=== PATIENT | female | born 1940 | race Caucasian/White ===

== ENCOUNTER 2017-11-08 10:28 | Emergency (ER) | payer OTHER ==
[~2017-11-08] VITALS: Ht 147.3 cm; Wt 56.0 kg
[2017-11-08 10:33] VITALS: BP 218/94; PULSE 93; RESP 16; TEMP 97.9; O2SAT 95
--- NOTE | 2017-11-08 11:18 | PD ---
HPI Chief Complaint: Injury Time Seen by Provider: 10:52 Travel History International Travel<30 days: No Contact w/Intl Traveler<30days: No Traveled to known affect area: No History of Present Illness HPI 77-year-old female here with right knee pain 2 weeks. Patient reports approximately 2 weeks ago she tripped while going up the stairs falling onto the right flexed knee. There was no head injury or loss of consciousness. Patient is on Xarelto. She denies any headache, visual changes, dizziness since the event. She has pain localized to the right knee exclusively. Pain is worse with weightbearing and range of motion. No paresthesia or weakness of the extremity. Symptom severity is moderate. Slightly alleviated with Tylenol. PFSH Past Medical History Hx Anticoagulant Therapy: Yes (XARELTO) Cardiovascular Problems: Yes (HTN, CHOL) High Cholesterol: Yes Cerebrovascular Accident: Yes (CVA) Diabetes: Yes Patient Takes Glucophage: Yes Diminished Hearing: No Hypertension: Yes Tetanus Vaccination: < 5 Years ?: Not Past Surgical History Appendectomy: Yes Cholecystectomy: Yes Tonsillectomy: Yes Other Surgery: Yes (BILAT. ANKLE FX'S REPAIR) Social History Alcohol Use: Yes (RARE) Tobacco Use: No Allergies-Medications (Allergen,Severity, Reaction): Coded Allergies: No Known Allergies (Unverified , 11/08/17) Reported Meds & Prescriptions Reported Meds & Active Scripts Active Ultram (Tramadol HCl) 50 Mg Tab 50 Mg PO Q6H PRN Review of Systems Except as stated in HPI: all other systems reviewed are Neg General / Constitutional: No: Fever Eyes: No: Visual changes HENT: No: Headaches Cardiovascular: No: Chest Pain or Discomfort Physical Exam Narrative GENERAL: Alert and well-appearing 77-year-old female SKIN: Warm and dry. HEAD: Normocephalic. Atraumatic EYES: Pupils equal, round, reactive to light. EOMs intact. No injection or drainage. NECK: Supple, trachea midline. No cervical midline tenderness. CARDIOVASCULAR: Regular rate and rhythm without murmurs, gallops, or rubs. RESPIRATORY: Breath sounds equal bilaterally. No accessory muscle use. GASTROINTESTINAL: Abdomen soft, non-tender, nondistended. MUSCULOSKELETAL: No cyanosis, or edema. RLE: Tenderness and mild swelling to the anterior aspect of the right knee. No warmth or erythema of the joint. No obvious deformity. Joint is stable. Reproducible pain with flexion. Palpable distal pulses. Normal sensation. Brisk cap refill. BACK: Nontender without obvious deformity. No CVA tenderness. Data Data Last Documented VS Vital Signs Date Time Temp Pulse Resp B/P (MAP) Pulse Ox O2 Delivery O2 Flow Rate FiO2 11/08/17 10:33 97.9 93 16 218/94 (135) 95 Orders Orders Knee, Complete (4vws) (11/08/17 ) Chad Bandage (11/08/17 11:38) MDM Medical Decision Making Medical Screen Exam Complete: Yes Emergency Medical Condition: Yes Differential Diagnosis Knee contusion, fracture, sprain Narrative Course 77-year-old female here with right knee pain after fall 2 weeks ago. The extremity is neurovascularly intact. X-rays negative for fracture. Her blood pressure was elevated initially, on recheck it was 150/90. Diagnosis Primary Impression: Knee contusion Qualified Codes: S80.01XA - Contusion of right knee, initial encounter Referrals: Primary Care Physician Additional Instructions: Medication as directed. Chad wrap for support. Follow-up with her primary doctor. Scripts Tramadol (Ultram) 50 Mg Tab 50 MG PO Q6H Y for PAIN, #12 TAB 0 Refills Prov: Giovana Montana 11/08/17 Disposition: 01 DISCHARGE HOME Condition: Stable Giovana Montana November 08, 2017 11:18
--- NOTE | 2017-11-08 11:35 | RADRPT ---
EXAM DATE/TIME: 11/08/2017 11:16 [facility] COMPARISON: No previous studies available for comparison. INDICATIONS : Fell down stairs, 3 weeks ago, right knee pain. MEDICAL HISTORY : None. SURGICAL HISTORY : None. ENCOUNTER: Initial ACUITY: 3 weeks PAIN SCORE: 3/10 LOCATION: Right knee FINDINGS: Four view examination of the right knee demonstrates no evidence of fracture or dislocation. Bony mi neralization is normal. The articular surfaces are intact. The suprapatellar soft tissues have a no rmal configuration. CONCLUSION: 1. No acute bony fracture identified. 2. No significant joint effusions. Marlo Patel MD on November 08, 2017 at 11:32 Board Certified Radiologist. This report was verified electronically.
[2017-11-08] MEDS ORDERED: TRAM50 PO (11:38)
[2017-11-08 11:40] VITALS: BP 154/90; PULSE 77; RESP 18; O2SAT 97
[2017-11-08] MEDS ORDERED: VITA2000 PO (11:44)
[2017-11-08] MEDS ORDERED: XARE15TA PO (11:44)
[2017-11-08] MEDS ORDERED: TRAD5TAB PO (11:44)
[2017-11-08] MEDS ORDERED: SERT-132 PO (11:44)
[2017-11-08] MEDS ORDERED: METF500T PO (11:44)
[2017-11-08] MEDS ORDERED: LEVO75TA3 PO (11:44)
[2017-11-08] MEDS ORDERED: LOSA100T PO (11:44)
[2017-11-08] MEDS ORDERED: GLIP-146 PO (11:44)
== END 2017-11-08 11:55 | disposition home or self-care (01) ==
LOC: PHEFT 10:28
DX: S80.01XA Contusion of right knee, initial encounter (principal); W10.9XXA Fall (on) (from) unspecified stairs and steps, initial encounter; E11.9 Type 2 diabetes mellitus without complications; E78.00 Pure hypercholesterolemia, unspecified; I10 Essential (primary) hypertension; Z86.73 Personal history of transient ischemic attack (TIA), and cerebral infarction without residual deficits
CPT/HCPCS: 73564; 99283